=== PATIENT | female | born 1990 | race Caucasian/White ===

== ENCOUNTER 2024-03-11 19:27 | Outpatient (CLI) | payer BC, SELFPAY ==
[2024-03-11 19:49] VITALS: PULSE 100; RESP 18; TEMP 36.8; O2SAT 98
[2024-03-11 19:54] VITALS: PULSE 87; O2SAT 99
[2024-03-11 19:59] VITALS: PULSE 84; O2SAT 99
[2024-03-11 20:01] VITALS: BP 105/62; PULSE 77
[2024-03-11 20:04] VITALS: PULSE 82; O2SAT 99
--- NOTE | 2024-03-11 20:04 | PC.NURSE ---
Dr. Pabon in OB unit. NST reviewed. Patient ok to go home and follow-up as scheduled.
== END 2024-03-11 20:04 | disposition home or self-care (01) ==
LOC: ANHOBOP 19:37 → ANHLDR 03-16 06:23
PROVIDERS: Visit Provider Obstetrics & Gynecology
DX: O36.8190 Decreased fetal movements, unspecified trimester, not applicable or unspecified (principal)
CPT/HCPCS: 59025; 99199

== ENCOUNTER 2024-04-22 18:10 | Inpatient (IN) | payer BC, SELFPAY ==
[2024-04-22] VITALS (57 sets, daily range): BP systolic 108–143; BP diastolic 64–98; PULSE 68–155; TEMP 36.7–36.9; O2SAT 93–100; BMI 32.5; BMI 31.1
--- NOTE | 2024-04-22 17:24 | OBADM ---
This patient, Roosevelt Stokes, admitted to the OB room OB Post 117 for observation. Patient/family oriented to hospital policies and general routines including ID bracelet, bed and alarms, visiting hours, pain management, procedures, bathroom and other care routines, personal items, smoking policy, room service/diet, and visiting hours. Patient/Family are encouraged to report perceived risks to care and to ask questions if they do not understand what they are told or what they should do.
--- NOTE | 2024-04-22 17:42 | PC.NURSE ---
Mariana Gomes at the bedside looking at pt phone. Pt has photo of unknown vaginal discharge. Pt has concerns that it is tissue. CNM verifying mucas plug. SVE completed by DENNISM /.
--- NOTE | 2024-04-22 18:21 | LDADM ---
This patient, Roosevelt Stokes, was admitted to OB Post 117 on at 17:24. Plans for labor, pain management and were discussed with patient. Patient/family oriented to hospital policies and general routines including ID bracelet, bed and alarms, visiting hours, pain management, procedures, bathroom and other care routines, personal items, smoking policy, room service/diet and guest tray routines, security routines, and visiting hours. Patient/Family are encouraged to report perceived risks to care and to ask questions if they do not understand what they are told or what they should do. See OBIX for further documentation.
[2024-04-22 18:53] LABS: Basophils Percent Auto 0.3 % (0.2-1.2); Eosinophils Absolute Auto 0.1 K/mm3 (0-0.3); Eosinophils Percent Auto 0.7 % (0-4.4); Hematocrit 35.8 % (37.0-47.0); Hemoglobin 11.6 g/dL (12.0-15.0); Immature Granulocyte Absolute 0.12 K/mm3 (0.00-0.031); Lymphocytes Percent Auto 22.9 % (18.3-44.2); Mean Corpuscular HGB Conc 32.4 g/dl (32-36); Mean Corpuscular Hemoglobin 28.6 pg (26-34); Mean Corpuscular Volume 88.4 fl (80-100); Mean Platelet Volume 10.8 fl (7.4-10.4); Monocytes Absolute Auto 1.2 K/mm3 (0.1-0.6); Monocytes Percent Auto 10.3 % (2.6-8.5); Neutrophils Absolute Auto 7.6 K/mm3 (1.3-6.7); Neutrophils Percent Auto 64.8 % (45.5-73.1); Platelet Count Result 238 k/mm3 (150-375); Red Blood Count 4.05 M/mm3 (4.2-5.4); Red Cell Distribution Width 13.3 % (11.5-14.5); White Blood Count 11.8 K/mm3 (4.5-10.0)
[2024-04-22] MEDS: LACTATED RINGERS 500 ML 999 ML IV CONT (19:20)
--- NOTE | 2024-04-22 19:39 | WPDANESEPP ---
Anes - Eval Pre Procedure Procedure: Labor epidural Date/Time: 04/22/24 19:39 Surgeon: Pepper Preop Diagnosis: Abdominal pain with contractions Pre Op Diagnosis: Leaking Patient Data Age: 34 Gender: F Height: 1.65 m Weight: 85 kg Last Vital Signs Pulse 86 04/22/24 19:31 BP 119/77 04/22/24 19:31 O2 Del Method Room Air 04/22/24 18:41 Allergies Allergy/AdvReac Type Severity Reaction Status Date / Time Penicillins Allergy Intermediate Severe Verified 04/21/24 12:07 Rash/Hives Home Medications Medication Instructions Recorded Confirmed Type prenat.vits,ifrah,yie-jabe-qlpdb 1 tablet PO DAILY 04/21/24 04/22/24 History Laboratory Tests 04/22/24 18:33 WBC 11.8 H K/mm3 (4.5-10.0) RBC 4.05 L M/mm3 (4.2-5.4) Hgb 11.6 L g/dL (12.0-15.0) Hct 35.8 L % (37.0-47.0) MCV 88.4 fl (80-100) MCH 28.6 pg (26-34) MCHC 32.4 g/dl (32-36) RDW 13.3 % (11.5-14.5) Plt Count 238 k/mm3 (150-375) MPV 10.8 H fl (7.4-10.4) Immature Gran % (Auto) 1.0 H % (0-0.5) Neut % (Auto) 64.8 % (45.5-73.1) Lymph % (Auto) 22.9 % (18.3-44.2) [place] % (Auto) 10.3 H % (2.6-8.5) Eos % (Auto) 0.7 % (0-4.4) Baso % (Auto) 0.3 % (0.2-1.2) Lymph # (Auto) 2.70 K/mm3 (0.9-3.2) [place] # (Auto) 1.2 H K/mm3 (0.1-0.6) Eos # (Auto) 0.1 K/mm3 (0-0.3) Baso # (Auto) 0.0 K/mm3 (0.0-0.1) Abs Immat Gran (auto) 0.12 H K/mm3 (0.00-0.031) Absolute Neuts (auto) 7.6 H K/mm3 (1.3-6.7) Absolute Nucleated RBC 0.000 K/mm3 (0.0-0.012) Nucleated RBC % 0.0 % (0.0-0.2) RPR Pending : gestational age HCG: positive Patient hx anesthesia problems: none Family hx anesthesia problems: none Results Review: All pre-operative results and documents have been reviewed as part of the pre-operative evaluation. [facility] Past Medical History Medical History Overweight (BMI 25.0-29.9) and not yet delivered Family History Family History Grandparent Lung cancer Social History Social History Smoking status: Never smoker Substance use: never Do You Feel Safe in your Home?: Yes Lack of Transportation: No Lack of Food: Never True Current Housing: I Have Housing Concerned About Future Housing: No Difficulty Paying Gas/Electric Bills: No Difficulty Paying for Meds: No Currently Unemployed: No Education: Bachelor's Degree Difficulty w/ Childcare or Family Care: No Spiritual care concerns: No Exam Day of Procedure 04/22/24 19:39 Patient weight: overweight Heart: regular rate and rhythm Lungs: clear to auscultation Airway: Mallampati scale class II
[2024-04-22] MEDS: OXYTOCIN 30 UNITS/NS 500 ML 30 UNITS/500 ML BAG IV CONT (19:52)
[2024-04-23] VITALS (100 sets, daily range): BP systolic 90–134; BP diastolic 42–104; PULSE 60–108; RESP 16–18; TEMP 36.8–36.9; O2SAT 92–100
[2024-04-23] MEDS: FAMOTIDINE 20 MG/2 ML VIAL IV PUSH (01:00)
[2024-04-23] MEDS: LACTATED RINGERS 1,000 ML 125 ML IV CONT (01:47)
[2024-04-23] MEDS: ceFAZolin 2 GM/D5W 50 ML 2 GM/50 ML BAG IVPB (02:45)
[2024-04-23] MEDS: ONDANSETRON INJ 4 MG/2 ML VIAL IV PUSH (05:13)
[2024-04-23] MEDS: OXYTOCIN 30 UNITS/NS 500 ML 30 UNITS/500 ML BAG 999 UNITS IV CONT (06:35)
--- NOTE | 2024-04-23 06:44 | PM.OBPRVD ---
OB - Vaginal Delivery Note Procedure Delivery date: 04/23/24 Induction method: None Delivery augmentation: Rupture of Membranes and Pitocin Delivery monitor: External FHT and Internal Uterine Route of delivery: Episiotomy description: None Laceration Description: None Specimen: No Quantitative Blood Loss (ml): 75 Anesthesia type: Epidural Disposition: Floor Complications: No immediate complications Baby Date of : 04/23/24 Time of : 06:33 Weeks of gestation at delivery: 40 Infant gender: Female presentation: vertex position: Left Occiput Anterior Placenta delivery description: Spontaneous Cord Vessel Description: 3 Vessels score one minute: 9 score five minutes: 9 Narrative: mother and baby skin to skin in stable condition
[2024-04-23] MEDS: OXYTOCIN 30 UNITS/NS 500 ML 30 UNITS/500 ML BAG 125 UNITS IV CONT (07:05)
[2024-04-23] MEDS: BENZOCAINE 20% AER SPR (*SP) 56 GM CAN 1 SPRAY TOPICAL (07:36)
[2024-04-23] MEDS: ACETAMINOPHEN 325 MG TABLET 650 MG PO ×2 (07:36→15:10)
[2024-04-23] MEDS: WITCH HAZEL 40 PADS 1 PAD TOPICAL (07:36)
[2024-04-23 08:20] LABS: Rapid Plasma Reagin Non-Reactive (NonReactive)
[2024-04-23] MEDS: IBUPROFEN 600 MG TABLET PO ×2 (09:20→19:42)
[2024-04-24] MEDS: ACETAMINOPHEN 325 MG TABLET 650 MG PO (00:13)
[2024-04-24 04:30] VITALS: BP 105/64; PULSE 66; RESP 18; TEMP 36.6
[2024-04-24] MEDS: IBUPROFEN 600 MG TABLET PO (04:30)
[2024-04-24 04:52] LABS: Hematocrit 30.9 % (37.0-47.0); Hemoglobin 9.8 g/dL (12.0-15.0)
[2024-04-24 07:35] VITALS: BP 102/71; PULSE 58; RESP 16; TEMP 36.9; O2SAT 100
--- NOTE | 2024-04-24 08:32 | WPDANLDPN2 ---
Anes-Prog Note L&D Date/Time: 04/24/24 08:32 Neuro status: Neuro function grossly intact. Vital Signs: Last Vital Signs Temp 36.6 C 04/24/24 04:30 Pulse 66 04/24/24 04:30 Resp 18 04/24/24 04:30 BP 105/64 04/24/24 04:30 Pulse Ox 100 04/23/24 05:52 O2 Del Method Room Air 04/23/24 19:40 Pain score (VAS): 2-pt reports tenderness at epidural site Patient feedback: Patient satisfied with anesthetic care.
[2024-04-24] MEDS: MULTIVIT/MIN/PREN/FOL AC/IRON TABLET 1 TAB PO (09:20)
[2024-04-24] MEDS: DOCUSATE SODIUM 100 MG CAPSULE PO (09:20)
[2024-04-24] MEDS: POLYSACCHARIDE IRON COMPLEX 150 MG CAPSULE PO (09:20)
--- NOTE | 2024-04-24 09:37 | PM.OBPNVD ---
OB - PN: Subj Subjective Date/time seen: 04/24/24 09:37 Patient comments: no complaints, pain well controlled, incisional pain, tolerating diet and flatus present OB - PN: Obj Data Labs 04/24/24 04:40 Labs: Laboratory Results - last 24 hr 04/24/24 04:40 Hgb 9.8 L Hct 30.9 L OB - PN A/P Plan day: 1 Plan: routine care Comments: No problems, routine care Time Spent With Patient Time: Total time spent is greater than 50% in coordination of care (as documented) at patient's floor/unit and/or counseling patient: Exam Const: General: comfortable, no acute distress and alert Resp: Effort & Inspection: normal respiratory effort Auscultation: no crackles, no rales and no rhonchi Cardio: Rate: regular rate Heart sounds: no click, no murmurs and no rubs GI: Inspection: non-distended GI Palp: No Tenderness to palpation present (GI) Auscultation: normal bowel sounds Other: Incision - CDI Extrem: General: normal to inspection, no pedal edema and no calf tenderness
--- NOTE | 2024-04-24 10:54 | PM.OBDSVD ---
DS: Admitting Diagnosis Discharge Date April 24, 2024 Admitting Diagnosis term OB - DS: Summary OB Procedures : None OB Procedures Intrapartum: Spontaneous Vag Delivery OB Procedures: : None Peripartum Data Laceration Description: None Episiotomy description: None Time Spent with Patient Time attestation: Total time spent providing and/or coordinating discharge services: DS: Data Data Completed and Pending Labs on day of discharge: Labs from last 24 hours 04/24/24 04:40 Hgb 9.8 L Hct 30.9 L Discharge Plan Discharge Discharging Clinician: Fernando Pabon Patient Disposition: Home, Self-Care Activity: pelvic rest Diet: regular Patient Instructions: Antibiotic Form Stand Alone Forms: General Discharge Information Follow-up/Referrals: Fernando Pabon MD [Physician] - Discharge Medications: No Action #2 Tablet 1 tablet PO DAILY Date of admission: 04/22/24 18:10 Primary Care Provider: Prema Gomes Admitting Provider: Fernando Pabon Attending physician on admission: Fernando Pabon Condition: Stable
--- NOTE | 2024-04-24 13:15 | PC.NURSE ---
[id number] Introductions were made and consulted with mother concerning needs and she shared her ability to independently latch infant optimally without pain. Mother is feeding appropriately for growth of infant and understands stimulating infant to eat if needed and is holding to her chest. has had appropriate feedings in the last 24 hours meets the outcomes for weight, output, blood sugar and jaundice at this time. Reinforced understanding of milk production, transition of milk, signs of adequate intake, transition of stool, prevention/relief of engorgement, plugged ducts, mastitis, responsive watching for feeding cues, the different methods of stimulating infant to breastfeed 1-3 hours after the start of the last feeding, community resources, and when to call a provider using the resource of the feeding sheet along with the mom and baby guide. Many questions, concerns were discussed as a review since it had been more than a few years since she had breastfed a . Mother voiced understanding of the information shared, is confident to continue effectively her at home, when to call for assistance, denies any additional assistance or education at this time.
== END 2024-04-24 13:00 | disposition home or self-care (01) | DRG 807 ==
LOC: ANHOBOP 18:21 → ANHLDR 18:21 → ANHOB2 04-23 09:02
PROVIDERS: Admitting Provider Obstetrics & Gynecology; PCP Advanced Practice Midwife; Visit Provider Obstetrics & Gynecology
DX: O42.92 Full-term premature rupture of membranes, unspecified as to length of time between rupture and onset of labor (principal); Z37.0 Single live birth; Z3A.40 40 weeks gestation of pregnancy
CPT/HCPCS: 36415; 84112; 85014; 85018; 85025; 86592; 86850; 86900; 86901; A9270; J0690; J2405; J2590; J2795; J7120

== ENCOUNTER 2024-04-27 14:02 | Outpatient (CLI) | payer BC, SELFPAY ==
[2024-04-27 14:45] VITALS: BP 119/80; PULSE 75
[2024-04-27 15:00] VITALS: BP 117/81; PULSE 73
[2024-04-27 16:09] LABS: Basophils Percent Auto 0.3 % (0.2-1.2); Eosinophils Absolute Auto 0.2 K/mm3 (0-0.3); Eosinophils Percent Auto 2.5 % (0-4.4); Hematocrit 37.8 % (37.0-47.0); Hemoglobin 12.3 g/dL (12.0-15.0); Immature Granulocyte Absolute 0.08 K/mm3 (0.00-0.031); Immature Granulocyte Percent A 0.9 % (0-0.5); Lymphocytes Absolute Auto 2.28 K/mm3 (0.9-3.2); Mean Corpuscular HGB Conc 32.5 g/dl (32-36); Mean Corpuscular Hemoglobin 28.4 pg (26-34); Mean Corpuscular Volume 87.3 fl (80-100); Mean Platelet Volume 10.5 fl (7.4-10.4); Monocytes Absolute Auto 0.9 K/mm3 (0.1-0.6); Neutrophils Absolute Auto 5.6 K/mm3 (1.3-6.7); Neutrophils Percent Auto 61.3 % (45.5-73.1); Platelet Count Result 304 k/mm3 (150-375); Red Blood Count 4.33 M/mm3 (4.2-5.4); Red Cell Distribution Width 13.6 % (11.5-14.5); White Blood Count 9.1 K/mm3 (4.5-10.0)
[2024-04-27 16:19] LABS: Alanine Aminotransferase 30 U/L (6-35); Alkaline Phosphatase 133 U/L (38-126); Anion Gap 4 mmol/L (4-12); Aspartate Amino Transferase 41 U/L (14-36); Bilirubin,Total 0.4 mg/dL (0.2-1.3); Blood Urea Nitrogen 6 mg/dL (7-17); Calcium 9.1 mg/dL (8.4-10.2); Carbon Dioxide 25 mmol/L (22-30); Chloride 109 mmol/L (98-107); Estimated Glomerular Filt Rate > 60; Glucose 88 mg/dL (65-110); Potassium 3.7 mmol/L (3.4-5.0); Sodium 138 mmol/L (137-145); Uric Acid 4.6 mg/dL (2.5-7.5)
== END 2024-04-27 15:49 ==
LOC: ANHOBOP 14:10 → ANHOBPP 14:12
PROVIDERS: PCP Advanced Practice Midwife; Visit Provider Obstetrics & Gynecology
DX: O13.9 Gestational [pregnancy-induced] hypertension without significant proteinuria, unspecified trimester (principal)
CPT/HCPCS: 36415; 80053; 84550; 85025; 99199